=== PATIENT | male | born 1980 | race Caucasian/White ===

== ENCOUNTER 2019-12-25 22:48 | Emergency (ER) | payer OTHER ==
[~2019-12-25] VITALS: Ht 175.3 cm; Wt 68.0 kg
[~2019-12-25 22:48] MED LIST: ATIVAN1 MG PO; NEOSPORIN68 ML TRANSDERM; NORCO 5-325 TA1 EACH PO; VICODIN 5-3001 EACH PO
[2019-12-26] MEDS ORDERED: HYDROCODON-ACE1 EAC8 PO (01:18)
[2019-12-26] MEDS ORDERED: DOXYCYCLINE 10100 MG PO (01:18)
[2019-12-26 01:50] VITALS: BP 133/91
== END 2019-12-26 01:51 | disposition still patient (30) ==
LOC: M.ERS 22:48
DX: S91.311A Laceration without foreign body, right foot, initial encounter (principal); K50.90 Crohn's disease, unspecified, without complications; W22.8XXA Striking against or struck by other objects, initial encounter; Y93.89 Activity, other specified; Y92.89 Other specified places as the place of occurrence of the external cause; Y99.8 Other external cause status